=== PATIENT | female | born 1975 | race Caucasian/White ===

== ENCOUNTER 2018-01-02 18:09 | Emergency (ER) | payer SELFPAY ==
[~2018-01-02] VITALS: Ht 160 cm; Wt 97.5 kg
[~2018-01-02 18:09] MED LIST: AZIT-21 PO; DIAZ-345 PO; ESTR1TAB66; HYDR1TAB86 PO; HYDR480S10 GT; TOPI15CA6; TRZ100T PO
--- OUTSIDE RECORDS SUMMARY | 2018-01-02 18:16 | XMS REPORT | Continuity of Care Document ---
Author Author [facility] Organization [facility] Address Unknown Phone Unavailable Allergies Active Description Code Type Severity Reaction Onset Reported/Identified Relationship to Patient Clinical Status Yes NKANo Known Allergies NKA Miscellaneous Allergy Unknown N/A 07/12/2006 Yes No Known Drug Allergies [id number] Drug Allergy Mild N/A 03/19/2009 Yes Trazodone 150mg tab 150MG tablet Drug Allergy N/A N/A 08/15/2014 Yes Abilify 2 mg tablet Drug Allergy N/A N/A 11/03/2014 Medications There is no data. Problems Date Dx Coded Attending Type Code Diagnosis Diagnosed By 05/16/2008 780.39 SEIZURES OTHER 05/16/2008 780.39 SEIZURES OTHER 05/16/2008 LINDSEY MCBRIDE DO 780.39 SEIZURES OTHER 05/16/2008 BHAVANI MAXWELL MD 780.39 SEIZURES OTHER 05/16/2008 NAHID SUGGS DDS 780.39 SEIZURES OTHER 05/16/2008 780.39 SEIZURES OTHER 05/16/2008 FLOYD YIP MD 780.39 SEIZURES OTHER 05/16/2008 LINDSEY MCBRIDE DO 780.39 SEIZURES OTHER 05/16/2008 BHAVANI MAXWELL MD 780.39 SEIZURES OTHER 05/16/2008 BHAVANI MAXWELL MD 780.39 SEIZURES OTHER 05/16/2008 SHARON WOLF, JOJO Tatum 780.39 SEIZURES OTHER 05/16/2008 JOJO HERRERA PHD 780.39 SEIZURES OTHER 05/16/2008 GÉNESIS SOFTWARE INTEGRATION DEVELOPER, ZIGGY 780.39 SEIZURES OTHER 05/16/2008 GÉNESIS SOFTWARE INTEGRATION DEVELOPER, ZIGGY 780.39 SEIZURES OTHER 05/16/2008 SHARON WOLF, JOJO Tatum 780.39 SEIZURES OTHER 05/16/2008 GÉNESIS SOFTWARE INTEGRATION DEVELOPER, ZIGGY 780.39 SEIZURES OTHER 05/16/2008 GÉNESIS SOFTWARE INTEGRATION DEVELOPER, ZIGGY 780.39 SEIZURES OTHER 07/25/2008 780.79 Malaise And Fatigue 07/25/2008 780.79 Malaise And Fatigue 07/25/2008 LINDSEY MCBRIDE DO K 780.79 Malaise And Fatigue 07/25/2008 BHAVANI MAXWELL MD 780.79 Malaise And Fatigue 07/25/2008 MUOGHALTaina GUTIERREZS, NAHID N 780.79 Malaise And Fatigue 07/25/2008 780.79 Malaise And Fatigue 07/25/2008 FLOYD YIP MD 780.79 Malaise And Fatigue 07/25/2008 LINDSEY MCBRIDE DO 780.79 Malaise And Fatigue 07/25/2008 BHAVANI MAXWELL MD 780.79 Malaise And Fatigue 07/25/2008 BHAVANI MAXWELL MD 780.79 Malaise And Fatigue 07/25/2008 SHARON PHD, JOJO Tatum 780.79 Malaise And Fatigue 07/25/2008 SHARON PHD, JOJO Tatum 780.79 Malaise And Fatigue 07/25/2008 GÉNESIS SOFTWARE INTEGRATION DEVELOPER, ZIGGY 780.79 Malaise And Fatigue 07/25/2008 GÉNESIS SOFTWARE INTEGRATION DEVELOPER, ZIGGY 780.79 Malaise And Fatigue 07/25/2008 SHARON PHD, JOJO Tatum 780.79 Malaise And Fatigue 07/25/2008 GÉNESIS SOFTWARE INTEGRATION DEVELOPER, ZIGGY 780.79 Malaise And Fatigue 07/25/2008 GÉNESIS SOFTWARE INTEGRATION DEVELOPER, ZIGGY 780.79 Malaise And Fatigue 09/21/2008 780.52 Insomnia Unspecified 09/21/2008 786.50 Chest Pain 09/21/2008 780.52 Insomnia Unspecified 09/21/2008 786.50 Chest Pain 09/21/2008 LINDSEY MCBRIDE DO K 780.52 Insomnia Unspecified 09/21/2008 LINDSEY MCBRIDE DO K 786.50 Chest Pain 09/21/2008 BHAVANI MAXWELL MD 780.52 Insomnia Unspecified 09/21/2008 BHAVANI MAXWELL MD 786.50 Chest Pain 09/21/2008 MUOGWILIAN GUTIERREZS, NAHID N 780.52 Insomnia Unspecified 09/21/2008 ES DANIEL, NAHID N 786.50 Chest Pain 09/21/2008 780.52 Insomnia Unspecified 09/21/2008 786.50 Chest Pain 09/21/2008 FLOYD YIP MD 780.52 Insomnia Unspecified 09/21/2008 FLOYD YIP MD 786.50 Chest Pain 09/21/2008 LINDSEY MCBRIDE DO 780.52 Insomnia Unspecified 09/21/2008 LINDSEY MCBRIDE DO 786.50 Chest Pain 09/21/2008 BHAVANI MAXWELL MD 780.52 Insomnia Unspecified 09/21/2008 BHAVANI MAXWELL MD 786.50 Chest Pain 09/21/2008 BHAVANI MAXWELL MD 780.52 Insomnia Unspecified 09/21/2008 BHAVANI MAXWELL MD 786.50 Chest Pain 09/21/2008 SHARON WOLF, JOJO Tatum 780.52 Insomnia Unspecified 09/21/2008 SHARON WOLF, JOJO Tatum 786.50 Chest Pain 09/21/2008 SHARON WOLF, JOJO Tatum 780.52 Insomnia Unspecified 09/21/2008 SHARON WOLF, JOJO Tatum 786.50 Chest Pain 09/21/2008 GÉNESIS SOFTWARE INTEGRATION DEVELOPER, ZIGGY 780.52 Insomnia Unspecified 09/21/2008 GÉNESIS SOFTWARE INTEGRATION DEVELOPER, ZIGGY 786.50 Chest Pain 09/21/2008 GÉNESIS SOFTWARE INTEGRATION DEVELOPER, ZIGGY 780.52 Insomnia Unspecified 09/21/2008 GÉNESIS SOFTWARE INTEGRATION DEVELOPER, ZIGGY 786.50 Chest Pain 09/21/2008 SHARON WOLF, JOJO Tatum 780.52 Insomnia Unspecified 09/21/2008 SHARON WOLF, JOJO Tatum 786.50 Chest Pain 09/21/2008 GÉNESIS SOFTWARE INTEGRATION DEVELOPER, ZIGGY 780.52 Insomnia Unspecified 09/21/2008 GÉNESIS SOFTWARE INTEGRATION DEVELOPER, ZIGGY 786.50 Chest Pain 09/21/2008 GÉNESIS SOFTWARE INTEGRATION DEVELOPER, ZIGGY 780.52 Insomnia Unspecified 09/21/2008 GÉNESIS SOFTWARE INTEGRATION DEVELOPER, ZIGGY 786.50 Chest Pain 12/22/2008 333.99 Neuroleptic- induced Acute Akathisia 12/22/2008 333.99 Neuroleptic- induced Acute Akathisia 12/22/2008 LINDSEY MCBRIDE DO 333.99 Neuroleptic-induced Acute Akathisia 12/22/2008 BHAVANI MAXWELL MD 333.99 Neuroleptic-induced Acute Akathisia 12/22/2008 NAHID SUGGS DDS 333.99 Neuroleptic-induced Acute Akathisia 12/22/2008 333.99 Neuroleptic- induced Acute Akathisia 12/22/2008 FLOYD YIP MD 333.99 Neuroleptic-induced Acute Akathisia 12/22/2008 LINDSEY MCBRIDE DO 333.99 Neuroleptic-induced Acute Akathisia 12/22/2008 BHAVANI MAXWELL MD 333.99 Neuroleptic-induced Acute Akathisia 12/22/2008 BHAVANI MAXWELL MD 333.99 Neuroleptic-induced Acute Akathisia 12/22/2008 SHARON PHD, JOJO Tatum 333.99 Neuroleptic-induced Acute Akathisia 12/22/2008 SHARON PHD, JOJO Tatum 333.99 Neuroleptic-induced Acute Akathisia 12/22/2008 GÉNESIS SOFTWARE INTEGRATION DEVELOPER, ZIGGY 333.99 Neuroleptic-induced Acute Akathisia 12/22/2008 GÉNESIS SOFTWARE INTEGRATION DEVELOPER, ZIGGY 333.99 Neuroleptic-induced Acute Akathisia 12/22/2008 SHARON PHD, JOJO Tatum 333.99 Neuroleptic-induced Acute Akathisia 12/22/2008 GÉNESIS SOFTWARE INTEGRATION DEVELOPER, ZIGGY 333.99 Neuroleptic-induced Acute Akathisia 12/22/2008 GÉNESIS SOFTWARE INTEGRATION DEVELOPER, ZIGGY 333.99 Neuroleptic-induced Acute Akathisia 01/01/2009 296.90 Unspecified Episodic Mood Disorder 01/01/2009 300.00 AN ANXIETY UNSPEC 01/01/2009 307.47 Si Dyssomnia Nos 01/01/2009 345.90 Epilepsy Unspecified Without Intractable Epilepsy 01/01/2009 296.90 Unspecified Episodic Mood Disorder 01/01/2009 300.00 AN ANXIETY UNSPEC 01/01/2009 307.47 Si Dyssomnia Nos 01/01/2009 345.90 Epilepsy Unspecified Without Intractable Epilepsy 01/01/2009 RAE BUTTERFIELD LINDSEY K 296.90 Unspecified Episodic Mood Disorder 01/01/2009 JAMARCUS MCBRIDE DOA K 300.00 AN ANXIETY UNSPEC 01/01/2009 JAMARCUS MCBRIDE DOA K 307.47 Si Dyssomnia Nos 01/01/2009 JAMARCUS MCBRIDE DOA K 345.90 Epilepsy Unspecified Without Intractable Epilepsy 01/01/2009 BHAVANI MAXWELL MD 296.90 Unspecified Episodic Mood Disorder 01/01/2009 BHAVANI AMXWELL MD 300.00 AN ANXIETY UNSPEC 01/01/2009 BHAVANI MAXWELL MD 307.47 Si Dyssomnia Nos 01/01/2009 BHAVANI MAXWELL MD 345.90 Epilepsy Unspecified Without Intractable Epilepsy 01/01/2009 ES DANIEL, NAHID Dodd 296.90 Unspecified Episodic Mood Disorder 01/01/2009 MUOGHALU DDS, NAHID N 300.00 AN ANXIETY UNSPEC 01/01/2009 MUOGHALU DDS, NAHID N 307.47 Si Dyssomnia Nos 01/01/2009 OSCAROGHALU DDS, NAHID N 345.90 Epilepsy Unspecified Without Intractable Epilepsy 01/01/2009 296.90 Unspecified Episodic Mood Disorder 01/01/2009 300.00 AN ANXIETY UNSPEC 01/01/2009 307.47 Si Dyssomnia Nos 01/01/2009 345.90 Epilepsy Unspecified Without Intractable Epilepsy 01/01/2009 FLOYD YIP MD 296.90 Unspecified Episodic Mood Disorder 01/01/2009 FLOYD YIP MD 300.00 AN ANXIETY UNSPEC 01/01/2009 FLOYD YIP MD 307.47 Si Dyssomnia Nos 01/01/2009 FLOYD YIP MD 345.90 Epilepsy Unspecified Without Intractable Epilepsy 01/01/2009 MCBRIDE DO, LINDSEY K 296.90 Unspecified Episodic Mood Disorder 01/01/2009 MCBRIDE DO, LINDSEY K 300.00 AN ANXIETY UNSPEC 01/01/2009 MCBRIDE DO, LINDSEY K 307.47 Si Dyssomnia Nos 01/01/2009 MCBRIDE DO, LINDSEY K 345.90 Epilepsy Unspecified Without Intractable Epilepsy 01/01/2009 BHAVANI MAXWELL MD 296.90 Unspecified Episodic Mood Disorder 01/01/2009 BHAVANI MAXWELL MD 300.00 AN ANXIETY UNSPEC 01/01/2009 BHAVANI MAXWELL MD 307.47 Si Dyssomnia Nos 01/01/2009 BHAVANI MAXWELL MD 345.90 Epilepsy Unspecified Without Intractable Epilepsy 01/01/2009 BHAVANI MAXWELL MD 296.90 Unspecified Episodic Mood Disorder 01/01/2009 BHAVANI MAXWELL MD 300.00 AN ANXIETY UNSPEC 01/01/2009 BHAVANI MAXWELL MD 307.47 Si Dyssomnia Nos 01/01/2009 BHAVANI MAXWELL MD 345.90 Epilepsy Unspecified Without Intractable Epilepsy 01/01/2009 SHARON WOLF, JOJO Tatum 296.90 Unspecified Episodic Mood Disorder 01/01/2009 SHARON WOLF, JOJO Tatum 300.00 AN ANXIETY UNSPEC 01/01/2009 SHARON WOLF, JOJO Tatum 307.47 Si Dyssomnia Nos 01/01/2009 SHARON WOLF, JOJO Tatum 345.90 Epilepsy Unspecified Without Intractable Epilepsy 01/01/2009 JOJO HERRERA PHD 296.90 Unspecified Episodic Mood Disorder 01/01/2009 JOJO HERRERA PHD 300.00 AN ANXIETY UNSPEC 01/01/2009 JOJO HERRERA PHD 307.47 Si Dyssomnia Nos 01/01/2009 JOJO HERRERA PHD 345.90 Epilepsy Unspecified Without Intractable Epilepsy 01/01/2009 GÉNESIS SOFTWARE INTEGRATION DEVELOPER, ZIGGY 296.90 Unspecified Episodic Mood Disorder 01/01/2009 GÉNESIS SOFTWARE INTEGRATION DEVELOPER, ZIGGY 300.00 AN ANXIETY UNSPEC 01/01/2009 GÉNESIS SOFTWARE INTEGRATION DEVELOPER, ZIGGY 307.47 Si Dyssomnia Nos 01/01/2009 GÉNESIS SOFTWARE INTEGRATION DEVELOPER, ZIGGY 345.90 Epilepsy Unspecified Without Intractable Epilepsy 01/01/2009 GÉNESIS SOFTWARE INTEGRATION DEVELOPER, ZIGGY 296.90 Unspecified Episodic Mood Disorder 01/01/2009 GÉNESIS SOFTWARE INTEGRATION DEVELOPER, ZIGGY 300.00 AN ANXIETY UNSPEC 01/01/2009 GÉNESIS SOFTWARE INTEGRATION DEVELOPER, ZIGGY 307.47 Si Dyssomnia Nos 01/01/2009 GÉNESIS SOFTWARE INTEGRATION DEVELOPER, ZIGGY 345.90 Epilepsy Unspecified Without Intractable Epilepsy 01/01/2009 JOJO HERRERA PHD 296.90 Unspecified Episodic Mood Disorder 01/01/2009 JOJO HERRERA PHD 300.00 AN ANXIETY UNSPEC 01/01/2009 JOJO HERRERA PHD 307.47 Si Dyssomnia Nos 01/01/2009 JOJO HERRERA PHD 345.90 Epilepsy Unspecified Without Intractable Epilepsy 01/01/2009 GÉNESIS SOFTWARE INTEGRATION DEVELOPER, ZIGGY 296.90 Unspecified Episodic Mood Disorder 01/01/2009 GÉNESIS SOFTWARE INTEGRATION DEVELOPER, ZIGGY 300.00 AN ANXIETY UNSPEC 01/01/2009 GÉNESIS SOFTWARE INTEGRATION DEVELOPER, ZIGGY 307.47 Si Dyssomnia Nos 01/01/2009 GÉNESIS SOFTWARE INTEGRATION DEVELOPER, ZIGGY 345.90 Epilepsy Unspecified Without Intractable Epilepsy 01/01/2009 GÉNESIS SOFTWARE INTEGRATION DEVELOPER, ZIGGY 296.90 Unspecified Episodic Mood Disorder 01/01/2009 GÉNESIS SOFTWARE INTEGRATION DEVELOPER, ZIGGY 300.00 AN ANXIETY UNSPEC 01/01/2009 GÉNESIS SOFTWARE INTEGRATION DEVELOPER, ZIGGY 307.47 Si Dyssomnia Nos 01/01/2009 GÉNESIS SOFTWARE INTEGRATION DEVELOPER, ZIGGY 345.90 Epilepsy Unspecified Without Intractable Epilepsy 01/31/2009 465.9 Acute Upper Respiratory Infections Of Unspecified Site 01/31/2009 595.0 Acute Cystitis 01/31/2009 465.9 Acute Upper Respiratory Infections Of Unspecified Site 01/31/2009 595.0 Acute Cystitis 01/31/2009 LINDSEY MCBRIDE DO K 465.9 Acute Upper Respiratory Infections Of Unspecified Site 01/31/2009 RAE BUTTERFIELD LINDSEY K 595.0 Acute Cystitis 01/31/2009 BHAVANI MAXWELL MD 465.9 Acute Upper Respiratory Infections Of Unspecified Site 01/31/2009 BHAVANI MAXWELL MD 595.0 Acute Cystitis 01/31/2009 MUOGHALU DDS, NAHID N 465.9 Acute Upper Respiratory Infections Of Unspecified Site 01/31/2009 MUOGHALU DDS, NAHID N 595.0 Acute Cystitis 01/31/2009 465.9 Acute Upper Respiratory Infections Of Unspecified Site 01/31/2009 595.0 Acute Cystitis 01/31/2009 FLOYD YIP MD 465.9 Acute Upper Respiratory Infections Of Unspecified Site 01/31/2009 FLOYD YIP MD 595.0 Acute Cystitis 01/31/2009 LINDSEY MCBRIDE DO K 465.9 Acute Upper Respiratory Infections Of Unspecified Site 01/31/2009 JAMARCUS MCBRIDE DOA K 595.0 Acute Cystitis 01/31/2009 BHAVANI MAXWELL MD 465.9 Acute Upper Respiratory Infections Of Unspecified Site 01/31/2009 BHAVANI MAXWELL MD 595.0 Acute Cystitis 01/31/2009 BHAVANI MAXWELL MD 465.9 Acute Upper Respiratory Infections Of Unspecified Site 01/31/2009 BHAVANI MAXWELL MD 595.0 Acute Cystitis 01/31/2009 JOJO HERRERA PHD 465.9 Acute Upper Respiratory Infections Of Unspecified Site 01/31/2009 JOJO HERRERA PHD 595.0 Acute Cystitis 01/31/2009 JOJO HERRERA PHD 465.9 Acute Upper Respiratory Infections Of Unspecified Site 01/31/2009 JOJO HERRERA PHD 595.0 Acute Cystitis 01/31/2009 GÉNESIS SOFTWARE INTEGRATION DEVELOPER, ZIGGY 465.9 Acute Upper Respiratory Infections Of Unspecified Site 01/31/2009 GÉNESIS SOFTWARE INTEGRATION DEVELOPER, ZIGGY 595.0 Acute Cystitis 01/31/2009 GÉNESIS SOFTWARE INTEGRATION DEVELOPER, ZIGGY 465.9 Acute Upper Respiratory Infections Of Unspecified Site 01/31/2009 GÉNESIS SOFTWARE INTEGRATION DEVELOPER, ZIGGY 595.0 Acute Cystitis 01/31/2009 JOJO HERRERA PHD 465.9 Acute Upper Respiratory Infections Of Unspecified Site 01/31/2009 JOJO HERRERA PHD 595.0 Acute Cystitis 01/31/2009 GÉNESIS SOFTWARE INTEGRATION DEVELOPER, ZIGGY 465.9 Acute Upper Respiratory Infections Of Unspecified Site 01/31/2009 GÉNESIS SOFTWARE INTEGRATION DEVELOPER, ZIGGY 595.0 Acute Cystitis 01/31/2009 GÉNESIS SOFTWARE INTEGRATION DEVELOPER, ZIGGY 465.9 Acute Upper Respiratory Infections Of Unspecified Site 01/31/2009 GÉNESIS SOFTWARE INTEGRATION DEVELOPER, ZIGGY 595.0 Acute Cystitis 02/20/2009 729.5 Pain In Limb 02/20/2009 729.5 Pain In Limb 02/20/2009 LINDSEY MCBRIDE DO K 729.5 Pain In Limb 02/20/2009 BHAVANI MAXWELL MD 729.5 Pain In Limb 02/20/2009 ES GUTIERREZS, NAHID Dodd 729.5 Pain In Limb 02/20/2009 729.5 Pain In Limb 02/20/2009 PHI HYLTON, FLOYD Carter 729.5 Pain In Limb 02/20/2009 LINDSEY MCBRIDE DO 729.5 Pain In Limb 02/20/2009 BHAVANI MAXWELL MD 729.5 Pain In Limb 02/20/2009 BHAVANI MAXWELL MD 729.5 Pain In Limb 02/20/2009 JOJO HERRERA PHD 729.5 Pain In Limb 02/20/2009 JOJO HERRERA PHD 729.5 Pain In Limb 02/20/2009 GÉNESIS SOFTWARE INTEGRATION DEVELOPER, ZIGGY 729.5 Pain In Limb 02/20/2009 GÉNESIS SOFTWARE INTEGRATION DEVELOPER, ZIGGY 729.5 Pain In Limb 02/20/2009 JOJO HERRERA PHD 729.5 Pain In Limb 02/20/2009 GÉNESIS SOFTWARE INTEGRATION DEVELOPER, ZIGGY 729.5 Pain In Limb 02/20/2009 GÉNESIS SOFTWARE INTEGRATION DEVELOPER, ZIGGY 729.5 Pain In Limb 02/11/2011 698.9 Pruritus Nos 02/11/2011 782.1 Rash 02/11/2011 698.9 Pruritus Nos 02/11/2011 782.1 Rash 02/11/2011 MCBRIDE JAMARCUS BUTTERFIELDA K 698.9 Pruritus Nos 02/11/2011 JAMARCUS MCBRIDE DOA K 782.1 Rash 02/11/2011 BHAVANI MAXWELL MD 698.9 Pruritus Nos 02/11/2011 BHAVANI MAXWELL MD 782.1 Rash 02/11/2011 MUOGHALU DDS, NAHID N 698.9 Pruritus Nos 02/11/2011 MUOGHALU DDS, NAHID N 782.1 Rash 02/11/2011 698.9 Pruritus Nos 02/11/2011 782.1 Rash 02/11/2011 FLOYD YIP MD 698.9 Pruritus Nos 02/11/2011 FLOYD YIP MD 782.1 Rash 02/11/2011 MCBRIDE DO, LINDSEY K 698.9 Pruritus Nos 02/11/2011 MCBRIDE DO, LINDSEY K 782.1 Rash 02/11/2011 BHAVANI MAXWELL MD 698.9 Pruritus Nos 02/11/2011 BHAVANI MAXWELL MD 782.1 Rash 02/11/2011 BHAVANI MAXWELL MD 698.9 Pruritus Nos 02/11/2011 BHAVANI MAXWELL MD 782.1 Rash 02/11/2011 JOJO HERRERA PHD 698.9 Pruritus Nos 02/11/2011 SHARON WOLF, JOJO Tatum 782.1 Rash 02/11/2011 SHARON WOLF, JOJO Tatum 698.9 Pruritus Nos 02/11/2011 SHARON WOLF, JOJO Tatum 782.1 Rash 02/11/2011 GÉNESIS SOFTWARE INTEGRATION DEVELOPER, ZIGGY 698.9 Pruritus Nos 02/11/2011 GÉNESIS SOFTWARE INTEGRATION DEVELOPER, ZIGGY 782.1 Rash 02/11/2011 GÉNESIS SOFTWARE INTEGRATION DEVELOPER, ZIGGY 698.9 Pruritus Nos 02/11/2011 GÉNESIS SOFTWARE INTEGRATION DEVELOPER, ZIGGY 782.1 Rash 02/11/2011 SHARON WOLF, JOJO Tatum 698.9 Pruritus Nos 02/11/2011 SHARON WOLF, JOJO Tatum 782.1 Rash 02/11/2011 GÉNESIS SOFTWARE INTEGRATION DEVELOPER, ZIGGY 698.9 Pruritus Nos 02/11/2011 GÉNESIS SOFTWARE INTEGRATION DEVELOPER, ZIGGY 782.1 Rash 02/11/2011 GÉNESIS SOFTWARE INTEGRATION DEVELOPER, ZIGGY 698.9 Pruritus Nos 02/11/2011 GÉNESIS SOFTWARE INTEGRATION DEVELOPER, ZIGGY 782.1 Rash 04/22/2011 783.0 Anorexia 04/22/2011 783.1 Weight Gain Abnormal 04/22/2011 783.5 Polydipsia 04/22/2011 787.02 Nausea Alone 04/22/2011 789.00 Abdominal Pain Unspecified Site 04/22/2011 783.0 Anorexia 04/22/2011 783.1 Weight Gain Abnormal 04/22/2011 783.5 Polydipsia 04/22/2011 787.02 Nausea Alone 04/22/2011 789.00 Abdominal Pain Unspecified Site 04/22/2011 MCBRIDE DO, LINDSEY K 783.0 Anorexia 04/22/2011 MCBRIDE DO, LINDSEY K 783.1 Weight Gain Abnormal 04/22/2011 MCBRIDE DO, LINDSEY K 783.5 Polydipsia 04/22/2011 MCBRIDE DO, LINDSEY K 787.02 Nausea Alone 04/22/2011 MCBRIDE DO, LINDSEY K 789.00 Abdominal Pain Unspecified Site 04/22/2011 BHAVANI MAXWELL MD 783.0 Anorexia 04/22/2011 BHAVANI MAXWELL MD 783.1 Weight Gain Abnormal 04/22/2011 BHAVANI MAXWELL MD 783.5 Polydipsia 04/22/2011 BHAVANI MAXWELL MD 787.02 Nausea Alone 04/22/2011 BHAVANI MAXWELL MD 789.00 Abdominal Pain Unspecified Site 04/22/2011 MUOGHALU DDS, NAHID N 783.0 Anorexia 04/22/2011 MUOGHALU DDS, NAHID N 783.1 Weight Gain Abnormal 04/22/2011 MUOGHALU DDS, NAHID N 783.5 Polydipsia 04/22/2011 MUOGHALU DDS, NAHID N 787.02 Nausea Alone 04/22/2011 MUOGHALU DDS, NAHID N 789.00 Abdominal Pain Unspecified Site 04/22/2011 783.0 Anorexia 04/22/2011 783.1 Weight Gain Abnormal 04/22/2011 783.5 Polydipsia 04/22/2011 787.02 Nausea Alone 04/22/2011 789.00 Abdominal Pain Unspecified Site 04/22/2011 FLOYD YIP MD 783.0 Anorexia 04/22/2011 FLOYD YIP MD 783.1 Weight Gain Abnormal 04/22/2011 FLOYD YIP MD 783.5 Polydipsia 04/22/2011 FLOYD YIP MD 787.02 Nausea Alone 04/22/2011 PHI HYLTON, FLOYD Carter 789.00 Abdominal Pain Unspecified Site 04/22/2011 RAE BUTTERFIELD, LINDSEY K 783.0 Anorexia 04/22/2011 MCBRIDE , LINDSEY K 783.1 Weight Gain Abnormal 04/22/2011 MCBRIDE , LINDSEY K 783.5 Polydipsia 04/22/2011 MCBRIDE , LINDSEY K 787.02 Nausea Alone 04/22/2011 MCBRIDE , LIDNSEY K 789.00 Abdominal Pain Unspecified Site 04/22/2011 BHAVANI MAXWELL MD 783.0 Anorexia 04/22/2011 BHAVANI MAXWELL MD 783.1 Weight Gain Abnormal 04/22/2011 BHAVANI MAXWELL MD3.5 Polydipsia 04/22/2011 BHAVANI MAXWELL MD 787.02 Nausea Alone 04/22/2011 BHAVANI MAXWELL MD 789.00 Abdominal Pain Unspecified Site 04/22/2011 BHAVANI MAXWELL MD 783.0 Anorexia 04/22/2011 BHAVANI MAXWELL MD 783.1 Weight Gain Abnormal 04/22/2011 BHAVANI MAXWELL MD3.5 Polydipsia 04/22/2011 BHAVANI MAXWELL MD 787.02 Nausea Alone 04/22/2011 BHAVANI MAXWELL MD 789.00 Abdominal Pain Unspecified Site 04/22/2011 JOJO HERRERA PHD 783.0 Anorexia 04/22/2011 JOJO HERRERA PHD 783.1 Weight Gain Abnormal 04/22/2011 JOJO HERRERA PHD 783.5 Polydipsia 04/22/2011 JOJO HERRERA PHD 787.02 Nausea Alone 04/22/2011 JOJO HERRERA PHD 789.00 Abdominal Pain Unspecified Site 04/22/2011 SHARON WOLF, JOJO Tatum 783.0 Anorexia 04/22/2011 JOJO HERRERA PHD 783.1 Weight Gain Abnormal 04/22/2011 JOJO HERRERA PHD 783.5 Polydipsia 04/22/2011 SHARON WOLF, JOJO Tatum 787.02 Nausea Alone 04/22/2011 SHARON WOLF, JOJO Tatum 789.00 Abdominal Pain Unspecified Site 04/22/2011 ZIGGY CAPPS APRN 783.0 Anorexia 04/22/2011 GÉNESIS SOFTWARE INTEGRATION DEVELOPER, ZIGGY 783.1 Weight Gain Abnormal 04/22/2011 GÉNESIS SOFTWARE INTEGRATION DEVELOPER, ZIGGY 783.5 Polydipsia 04/22/2011 GÉNESIS SOFTWARE INTEGRATION DEVELOPER, ZIGGY 787.02 Nausea Alone 04/22/2011 GÉNESIS SOFTWARE INTEGRATION DEVELOPER, ZIGGY 789.00 Abdominal Pain Unspecified Site 04/22/2011 GÉNESIS SOFTWARE INTEGRATION DEVELOPER, ZIGGY 783.0 Anorexia 04/22/2011 GÉNESIS SOFTWARE INTEGRATION DEVELOPER, ZIGGY 783.1 Weight Gain Abnormal 04/22/2011 GÉNESIS SOFTWARE INTEGRATION DEVELOPER, ZIGGY 783.5 Polydipsia 04/22/2011 GÉNESIS SOFTWARE INTEGRATION DEVELOPER, ZIGGY 787.02 Nausea Alone 04/22/2011 GÉNESIS SOFTWARE INTEGRATION DEVELOPER, ZIGGY 789.00 Abdominal Pain Unspecified Site 04/22/2011 SHARON WOLF, JOJO Tatum 783.0 Anorexia 04/22/2011 SHARON WOLF, JOJO Tatum 783.1 Weight Gain Abnormal 04/22/2011 SHARON WOLF, JOJO Tatum 783.5 Polydipsia 04/22/2011 SHARON WOLF, JOJO Tatum 787.02 Nausea Alone 04/22/2011 SHARON WOLF, JOJO Tatum 789.00 Abdominal Pain Unspecified Site 04/22/2011 GÉNESIS SOFTWARE INTEGRATION DEVELOPER, ZIGGY 783.0 Anorexia 04/22/2011 GÉNESIS SOFTWARE INTEGRATION DEVELOPER, ZIGGY 783.1 Weight Gain Abnormal 04/22/2011 GÉNESIS SOFTWARE INTEGRATION DEVELOPER, ZIGGY 783.5 Polydipsia 04/22/2011 GÉNESIS SOFTWARE INTEGRATION DEVELOPER, ZIGGY 787.02 Nausea Alone 04/22/2011 GÉNESIS SOFTWARE INTEGRATION DEVELOPER, ZIGGY 789.00 Abdominal Pain Unspecified Site 04/22/2011 GÉNESIS SOFTWARE INTEGRATION DEVELOPER, ZIGGY 783.0 Anorexia 04/22/2011 GÉNESIS SOFTWARE INTEGRATION DEVELOPER, ZIGGY 783.1 Weight Gain Abnormal 04/22/2011 GÉNESIS SOFTWARE INTEGRATION DEVELOPER, ZIGGY 783.5 Polydipsia 04/22/2011 GÉNESIS SOFTWARE INTEGRATION DEVELOPER, ZIGGY 787.02 Nausea Alone 04/22/2011 GÉNESIS SOFTWARE INTEGRATION DEVELOPER, ZIGGY 789.00 Abdominal Pain Unspecified Site 07/03/2011 724.2 BACK PAIN, LOWER 07/03/2011 724.2 BACK PAIN, LOWER 07/03/2011 LINDSEY MCBRIDE DO 724.2 BACK PAIN, LOWER 07/03/2011 HANS HYLTON, BHAVANI 724.2 BACK PAIN, LOWER 07/03/2011 MUOGHALU DDS, NAHID N 724.2 BACK PAIN, LOWER 07/03/2011 724.2 BACK PAIN, LOWER 07/03/2011 FLOYD YIP MD 724.2 BACK PAIN, LOWER 07/03/2011 LINDSEY MCBRIDE DO K 724.2 BACK PAIN, LOWER 07/03/2011 BHAVANI MAXWELL MD 724.2 BACK PAIN, LOWER 07/03/2011 BHAVANI MAXWELL MD 724.2 BACK PAIN, LOWER 07/03/2011 SHARON PHD, JOJO Tatum 724.2 BACK PAIN, LOWER 07/03/2011 SHARON PHD, JOJO Tatum 724.2 BACK PAIN, LOWER 07/03/2011 GÉNESIS SOFTWARE INTEGRATION DEVELOPER, ZIGGY 724.2 BACK PAIN, LOWER 07/03/2011 GÉNESIS SOFTWARE INTEGRATION DEVELOPER, ZIGGY 724.2 BACK PAIN, LOWER 07/03/2011 SHARON PHD, JOJO Tatum 724.2 BACK PAIN, LOWER 07/03/2011 GÉNESIS SOFTWARE INTEGRATION DEVELOPER, ZIGGY 724.2 BACK PAIN, LOWER 07/03/2011 GÉNESIS SOFTWARE INTEGRATION DEVELOPER, ZIGGY 724.2 BACK PAIN, LOWER 10/14/2011 682.9 Cellulitis And Abscess Of Unspecified Sites 10/14/2011 709.9 Skin Lesions 10/14/2011 682.9 Cellulitis And Abscess Of Unspecified Sites 10/14/2011 709.9 Skin Lesions 10/14/2011 LINDSEY MCBRIDE DO K 682.9 Cellulitis And Abscess Of Unspecified Sites 10/14/2011 LINDSEY MCBRIDE DO K 709.9 Skin Lesions 10/14/2011 BHAVANI MAXWELL MD 682.9 Cellulitis And Abscess Of Unspecified Sites 10/14/2011 BHAVANI MAXWELL MD 709.9 Skin Lesions 10/14/2011 MUOGHALTaina DDS, NAHID N 682.9 Cellulitis And Abscess Of Unspecified Sites 10/14/2011 ES GUTIERREZS, NAHID N 709.9 Skin Lesions 10/14/2011 682.9 Cellulitis And Abscess Of Unspecified Sites 10/14/2011 709.9 Skin Lesions 10/14/2011 FLOYD YIP MD 682.9 Cellulitis And Abscess Of Unspecified Sites 10/14/2011 FLOYD YIP MD 709.9 Skin Lesions 10/14/2011 LINDSEY MCBRIDE DO 682.9 Cellulitis And Abscess Of Unspecified Sites 10/14/2011 LINDSEY MCBRIDE DO 709.9 Skin Lesions 10/14/2011 BHAVANI MAXWELL MD 682.9 Cellulitis And Abscess Of Unspecified Sites 10/14/2011 BHAVANI MAXWELL MD 709.9 Skin Lesions 10/14/2011 BHAVANI MAXWELL MD 682.9 Cellulitis And Abscess Of Unspecified Sites 10/14/2011 BHAVANI MAXWELL MD 709.9 Skin Lesions 10/14/2011 SHARON WOLF, JOJO Tatum 682.9 Cellulitis And Abscess Of Unspecified Sites 10/14/2011 SHARON WOLF, JOJO Tatum 709.9 Skin Lesions 10/14/2011 SHARON WOLF, JOJO Tatum 682.9 Cellulitis And Abscess Of Unspecified Sites 10/14/2011 SHARON WOLF, JOJO Tatum 709.9 Skin Lesions 10/14/2011 GÉNESIS SOFTWARE INTEGRATION DEVELOPER, ZIGGY 682.9 Cellulitis And Abscess Of Unspecified Sites 10/14/2011 GÉNESIS SOFTWARE INTEGRATION DEVELOPER, ZIGGY 709.9 Skin Lesions 10/14/2011 GÉNESIS SOFTWARE INTEGRATION DEVELOPER, ZIGGY 682.9 Cellulitis And Abscess Of Unspecified Sites 10/14/2011 GÉNESIS SOFTWARE INTEGRATION DEVELOPER, ZIGGY 709.9 Skin Lesions 10/14/2011 SHARON WOLF, JOJO Tatum 682.9 Cellulitis And Abscess Of Unspecified Sites 10/14/2011 SHARON WOLF, JOJO Tatum 709.9 Skin Lesions 10/14/2011 GÉNESIS SOFTWARE INTEGRATION DEVELOPER, ZIGGY 682.9 Cellulitis And Abscess Of Unspecified Sites 10/14/2011 GÉNESIS SOFTWARE INTEGRATION DEVELOPER, ZIGGY 709.9 Skin Lesions 10/14/2011 GÉNESIS SOFTWARE INTEGRATION DEVELOPER, ZIGGY 682.9 Cellulitis And Abscess Of Unspecified Sites 10/14/2011 GÉNESIS SOFTWARE INTEGRATION DEVELOPER, ZIGGY 709.9 Skin Lesions 11/11/2011 300.02 An Gen Anxiety 11/11/2011 799.22 Irritibility 11/11/2011 300.02 An Gen Anxiety 11/11/2011 799.22 Irritibility 11/11/2011 LINDSEY MCBRIDE DO 300.02 An Gen Anxiety 11/11/2011 LINDSEY MCBRIDE DO 799.22 Irritibility 11/11/2011 BHAVANI MAXWELL MD 300.02 An Gen Anxiety 11/11/2011 BHAVANI MAXWELL MD 799.22 Irritibility 11/11/2011 MUOGHALU DDS, NAHID N 300.02 An Gen Anxiety 11/11/2011 MUOGHALU DDS, NAHID N 799.22 Irritibility 11/11/2011 300.02 An Gen Anxiety 11/11/2011 799.22 Irritibility 11/11/2011 FLOYD YIP MD 300.02 An Gen Anxiety 11/11/2011 FLOYD YIP MD 799.22 Irritibility 11/11/2011 MCBRIDE DO, LINDSEY K 300.02 An Gen Anxiety 11/11/2011 MCBRIDE DO, LINDSEY K 799.22 Irritibility 11/11/2011 BHAVANI MAXWELL MD 300.02 An Gen Anxiety 11/11/2011 BHAVANI MAXWELL MD 799.22 Irritibility 11/11/2011 BHAVANI MAXWELL MD 300.02 An Gen Anxiety 11/11/2011 BHAVANI MAXWELL MD 799.22 Irritibility 11/11/2011 SHARON WOLF, JOJO Tatum 300.02 An Gen Anxiety 11/11/2011 SHARON WOLF, JOJO Tatum 799.22 Irritibility 11/11/2011 SHARON WOLF, JOJO Tatum 300.02 An Gen Anxiety 11/11/2011 JOJO HERRERA PHD 799.22 Irritibility 11/11/2011 GÉNESIS SOFTWARE INTEGRATION DEVELOPER, ZIGGY 300.02 An Gen Anxiety 11/11/2011 GÉNESIS SOFTWARE INTEGRATION DEVELOPER, ZIGGY 799.22 Irritibility 11/11/2011 GÉNESIS SOFTWARE INTEGRATION DEVELOPER, ZIGGY 300.02 An Gen Anxiety 11/11/2011 GÉNESIS SOFTWARE INTEGRATION DEVELOPER, ZIGGY 799.22 Irritibility 11/11/2011 SHARON PHD, JOJO Tatum 300.02 An Gen Anxiety 11/11/2011 SHARON WOLF, JOJO Tatum 799.22 Irritibility 11/11/2011 GÉNESIS SOFTWARE INTEGRATION DEVELOPER, ZIGGY 300.02 An Gen Anxiety 11/11/2011 GÉNESIS SOFTWARE INTEGRATION DEVELOPER, ZIGGY 799.22 Irritibility 11/11/2011 GÉNESIS SOFTWARE INTEGRATION DEVELOPER, ZIGGY 300.02 An Gen Anxiety 11/11/2011 GÉNESIS SOFTWARE INTEGRATION DEVELOPER, ZIGGY 799.22 Irritibility 01/27/2012 333.94 RESTLESS LEGS SYNDROME (RLS) 01/27/2012 333.94 RESTLESS LEGS SYNDROME (RLS) 01/27/2012 LINDSEY MCBRIDE DO 333.94 RESTLESS LEGS SYNDROME (RLS) 01/27/2012 BHAVANI MAXWELL MD 333.94 RESTLESS LEGS SYNDROME (RLS) 01/27/2012 ES DANIEL, NAHID Dodd 333.94 RESTLESS LEGS SYNDROME (RLS) 01/27/2012 333.94 RESTLESS LEGS SYNDROME (RLS) 01/27/2012 PHI HYLTON, FLOYD Carter 333.94 RESTLESS LEGS SYNDROME (RLS) 01/27/2012 LINDSEY MCBRIDE DO 333.94 RESTLESS LEGS SYNDROME (RLS) 01/27/2012 BHAVANI MAXWELL MD 333.94 RESTLESS LEGS SYNDROME (RLS) 01/27/2012 BHAVANI MAXWELL MD 333.94 RESTLESS LEGS SYNDROME (RLS) 01/27/2012 SHARON WOLF, JOJO Tatum 333.94 RESTLESS LEGS SYNDROME (RLS) 01/27/2012 SHARON WOLF, JOJO Tatum 333.94 RESTLESS LEGS SYNDROME (RLS) 01/27/2012 ZIGGY CAPPS APRN 333.94 RESTLESS LEGS SYNDROME (RLS) 01/27/2012 ZIGGY CAPPS APRN 333.94 RESTLESS LEGS SYNDROME (RLS) 01/27/2012 SHARON WOLF, JOJO Tatum 333.94 RESTLESS LEGS SYNDROME (RLS) 01/27/2012 ZIGGY CAPPS APRN 333.94 RESTLESS LEGS SYNDROME (RLS) 01/27/2012 ZIGGY CAPPS APRN 333.94 RESTLESS LEGS SYNDROME (RLS) 11/05/2012 LINDSEY MCBRIDE DO 464.00 LARYNGITIS ACUTE W/O OBSTRUCTION 11/05/2012 LINDSEY MCBRIDE DO 466.0 BRONCHITIS, ACUTE 11/05/2012 LINDSEY MCBRIDE DO 786.2 COUGH 11/05/2012 BHAVANI MAXWELL MD 464.00 LARYNGITIS ACUTE W/O OBSTRUCTION 11/05/2012 BHAVANI MAXWELL MD 466.0 BRONCHITIS, ACUTE 11/05/2012 BHAVANI MAXWELL MD 786.2 COUGH 11/05/2012 ES DANIEL, NAHID Dodd 464.00 LARYNGITIS ACUTE W/O OBSTRUCTION 11/05/2012 MUOGHALU DDS, NAHID N 466.0 BRONCHITIS, ACUTE 11/05/2012 MUOGHALU DDS, NAHID N 786.2 COUGH 11/05/2012 464.00 LARYNGITIS ACUTE W/O OBSTRUCTION 11/05/2012 466.0 BRONCHITIS, ACUTE 11/05/2012 786.2 COUGH 11/05/2012 PHI HYLTON, FLOYD Carter 464.00 LARYNGITIS ACUTE W/O OBSTRUCTION 11/05/2012 PHI HYLTON, FLOYD Carter 466.0 BRONCHITIS, ACUTE 11/05/2012 PHI HYLTON, FLOYD Carter 786.2 COUGH 11/05/2012 MCBRIDE DO, LINDSEY K 464.00 LARYNGITIS ACUTE W/O OBSTRUCTION 11/05/2012 MCBRIDE DO, LINDSEY K 466.0 BRONCHITIS, ACUTE 11/05/2012 MCBRIDE DO, LINDSEY K 786.2 COUGH 11/05/2012 HANS HYLTON, BHAVANI 464.00 LARYNGITIS ACUTE W/O OBSTRUCTION 11/05/2012 HANS HYLTON, BHAVANI 466.0 BRONCHITIS, ACUTE 11/05/2012 HANS HYLTON, BHAVANI 786.2 COUGH 11/05/2012 HANS HYLTON, BHAVANI 464.00 LARYNGITIS ACUTE W/O OBSTRUCTION 11/05/2012 BHAVANI MAXWELL MD 466.0 BRONCHITIS, ACUTE 11/05/2012 HANS HYLTON, BHAVANI 786.2 COUGH 11/05/2012 SHARON WOLF, JOJO Tatum 464.00 LARYNGITIS ACUTE W/O OBSTRUCTION 11/05/2012 SHARON PHD, JOJO Tatum 466.0 BRONCHITIS, ACUTE 11/05/2012 SHARON PHD, JOJO Tatum 786.2 COUGH 11/05/2012 SHARON PHD, JOJO Tatum 464.00 LARYNGITIS ACUTE W/O OBSTRUCTION 11/05/2012 SHARON PHD, JOJO Tatum 466.0 BRONCHITIS, ACUTE 11/05/2012 SHARON PHD, JOJO Tatum 786.2 COUGH 11/05/2012 GÉNESIS SOFTWARE INTEGRATION DEVELOPER, ZIGGY 464.00 LARYNGITIS ACUTE W/O OBSTRUCTION 11/05/2012 GÉNESIS SOFTWARE INTEGRATION DEVELOPER, ZIGGY 466.0 BRONCHITIS, ACUTE 11/05/2012 GÉNESIS SOFTWARE INTEGRATION DEVELOPER, ZIGGY 786.2 COUGH 11/05/2012 GÉNESIS SOFTWARE INTEGRATION DEVELOPER, ZIGGY 464.00 LARYNGITIS ACUTE W/O OBSTRUCTION 11/05/2012 GÉNESIS SOFTWARE INTEGRATION DEVELOPER, ZIGGY 466.0 BRONCHITIS, ACUTE 11/05/2012 GÉNESIS SOFTWARE INTEGRATION DEVELOPER, ZIGGY 786.2 COUGH 11/05/2012 JOJO HERRERA PHD 464.00 LARYNGITIS ACUTE W/O OBSTRUCTION 11/05/2012 JOJO HERRERA PHD 466.0 BRONCHITIS, ACUTE 11/05/2012 JOJO HERRERA PHD 786.2 COUGH 11/05/2012 GÉNESIS SOFTWARE INTEGRATION DEVELOPER, ZIGGY 464.00 LARYNGITIS ACUTE W/O OBSTRUCTION 11/05/2012 GÉNESIS SOFTWARE INTEGRATION DEVELOPER, ZIGGY 466.0 BRONCHITIS, ACUTE 11/05/2012 GÉNESIS SOFTWARE INTEGRATION DEVELOPER, ZIGGY 786.2 COUGH 11/05/2012 GÉNESIS SOFTWARE INTEGRATION DEVELOPER, ZIGGY 464.00 LARYNGITIS ACUTE W/O OBSTRUCTION 11/05/2012 GÉNESIS SOFTWARE INTEGRATION DEVELOPER, ZIGGY 466.0 BRONCHITIS, ACUTE 11/05/2012 GÉNESIS SOFTWARE INTEGRATION DEVELOPER, ZIGGY 786.2 COUGH 06/15/2013 PHI HYLTON, FLOYD Carter 719.46 PAIN IN JOINT INVOLVING LOWER LEG 06/15/2013 LINDSEY MCBRIDE DO 719.46 PAIN IN JOINT INVOLVING LOWER LEG 06/15/2013 BHAVANI MAXWELL MD 719.46 PAIN IN JOINT INVOLVING LOWER LEG 06/15/2013 BHAVANI MAXWELL MD 719.46 PAIN IN JOINT INVOLVING LOWER LEG 06/15/2013 JOJO HERRERA PHD 719.46 PAIN IN JOINT INVOLVING LOWER LEG 06/15/2013 JOJO HERRERA PHD 719.46 PAIN IN JOINT INVOLVING LOWER LEG 06/15/2013 GÉNESIS SOFTWARE INTEGRATION DEVELOPER, ZIGGY 719.46 PAIN IN JOINT INVOLVING LOWER LEG 06/15/2013 GÉNESIS SOFTWARE INTEGRATION DEVELOPER, ZIGGY 719.46 PAIN IN JOINT INVOLVING LOWER LEG 06/15/2013 JOJO HERRERA PHD 719.46 PAIN IN JOINT INVOLVING LOWER LEG 06/15/2013 GÉNESIS SOFTWARE INTEGRATION DEVELOPER, ZIGGY 719.46 PAIN IN JOINT INVOLVING LOWER LEG 06/15/2013 GÉNESIS SOFTWARE INTEGRATION DEVELOPER, ZIGGY 719.46 PAIN IN JOINT INVOLVING LOWER LEG 08/03/2013 LINDSEY MCBRIDE DO 686.9 UNSPECIFIED LOCAL INFECTION OF SKIN AND SUBCUTANEOUS TISSUE 08/03/2013 BHAVANI MAXWELL MD 686.9 UNSPECIFIED LOCAL INFECTION OF SKIN AND SUBCUTANEOUS TISSUE 08/03/2013 BHAVANI MAXWELL MD 686.9 UNSPECIFIED LOCAL INFECTION OF SKIN AND SUBCUTANEOUS TISSUE 08/03/2013 JOJO HERRERA PHD 68Landon.9 UNSPECIFIED LOCAL INFECTION OF SKIN AND SUBCUTANEOUS TISSUE 08/03/2013 JOJO HERRERA PHD 686.9 UNSPECIFIED LOCAL INFECTION OF SKIN AND SUBCUTANEOUS TISSUE 08/03/2013 GÉNESIS ZIGGY REYNOSO 686.9 UNSPECIFIED LOCAL INFECTION OF SKIN AND SUBCUTANEOUS TISSUE 08/03/2013 GÉNESIS SOFTWARE INTEGRATION DEVELOPER, ZIGGY 686.9 UNSPECIFIED LOCAL INFECTION OF SKIN AND SUBCUTANEOUS TISSUE 08/03/2013 JOJO HERRERA PHD 686.9 UNSPECIFIED LOCAL INFECTION OF SKIN AND SUBCUTANEOUS TISSUE 08/03/2013 GÉNESIS SOFTWARE INTEGRATION DEVELOPER, ZIGGY 686.9 UNSPECIFIED LOCAL INFECTION OF SKIN AND SUBCUTANEOUS TISSUE 08/03/2013 GÉNESIS SOFTWARE INTEGRATION DEVELOPER, ZIGGY 686.9 UNSPECIFIED LOCAL INFECTION OF SKIN AND SUBCUTANEOUS TISSUE 04/25/2014 HANS HYLTON, BHAVANI E905.1 VENOMOUS SPIDERS CAUSING POISONING AND TOXIC REACTIONS 04/25/2014 JOJO HERRERA PHD E905.1 VENOMOUS SPIDERS CAUSING POISONING AND TOXIC REACTIONS 04/25/2014 JOJO HERRERA PHD E905.1 VENOMOUS SPIDERS CAUSING POISONING AND TOXIC REACTIONS 04/25/2014 GÉNESIS SOFTWARE INTEGRATION DEVELOPER, ZIGGY E905.1 VENOMOUS SPIDERS CAUSING POISONING AND TOXIC REACTIONS 04/25/2014 GÉNESIS SOFTWARE INTEGRATION DEVELOPER, ZIGGY E905.1 VENOMOUS SPIDERS CAUSING POISONING AND TOXIC REACTIONS 04/25/2014 JOJO HERRERA PHD E905.1 VENOMOUS SPIDERS CAUSING POISONING AND TOXIC REACTIONS 04/25/2014 GÉNESIS ZIGGY REYNOSO E905.1 VENOMOUS SPIDERS CAUSING POISONING AND TOXIC REACTIONS 04/25/2014 GÉNESIS ZIGGY REYNOSO E905.1 VENOMOUS SPIDERS CAUSING POISONING AND TOXIC REACTIONS 06/16/2014 JOJO HERRERA PHD 296.80 MO BIPOLAR NOS 06/16/2014 JOJO HERRERA PHD 296.80 MO BIPOLAR NOS 06/16/2014 GÉNESIS SOFTWARE INTEGRATION DEVELOPER, ZIGGY 296.80 MO BIPOLAR NOS 06/16/2014 GÉNESIS SOFTWARE INTEGRATION DEVELOPER, ZIGGY 296.80 MO BIPOLAR NOS 06/16/2014 JOJO HERRERA PHD 296.80 MO BIPOLAR NOS 06/16/2014 GÉNESIS SOFTWARE INTEGRATION DEVELOPER, ZIGGY 296.80 MO BIPOLAR NOS 06/16/2014 GÉNESIS SOFTWARE INTEGRATION DEVELOPER, ZIGGY 296.80 MO BIPOLAR NOS 07/25/2014 GÉNESIS SOFTWARE INTEGRATION DEVELOPER, ZIGGY 296.60 MO BIPOLAR I MIXED UNSPECIFIED 07/25/2014 GÉNESIS REYNOSO ZIGGY 296.60 MO BIPOLAR I MIXED UNSPECIFIED 07/25/2014 SHARON WOLF, JOJO Tatum 296.60 MO BIPOLAR I MIXED UNSPECIFIED 07/25/2014 GÉNESIS REYNOSO ZIGGY 296.60 MO BIPOLAR I MIXED UNSPECIFIED 07/25/2014 GÉNESIS REYNOSO ZIGGY 296.60 MO BIPOLAR I MIXED UNSPECIFIED 08/15/2014 GÉNESIS REYNOSO ZIGGY 296.62 MO BIPOLAR I MIXED MODERATE 08/15/2014 SHARON WOLF, JOJO Tatum 296.62 MO BIPOLAR I MIXED MODERATE 08/15/2014 GÉNESIS REYNOSO ZIGGY 296.62 MO BIPOLAR I MIXED MODERATE 08/15/2014 GÉNESIS REYNOSO ZIGGY 296.62 MO BIPOLAR I MIXED MODERATE 11/03/2014 ZIGGY CAPPS APRN 300.02 AN GEN ANXIETY 11/03/2014 ZIGGY CAPPS APRN 300.02 AN GEN ANXIETY Procedures Code [place] [address] ROUTINE VENIPUNCTURE 04/19/2013 34271 CMP 04/19/2013 9375081 GFR CALC (RESULT ONLY) 04/19/2013 90445 MRI EXTREMITY JOINT, LOWER LEFT W & W/O CONTRAST 06/17/2013 ORTHOPEDI SUJATA SHELTON 06/17/2013 J0696 ROCEPHIN INJ 08/03/2013 09578 THERAPUTIC INJ SQ/IM 08/03/2013 91993 URINE DRUG SCREEN (IN-HOUSE ) 10/07/2013 96684 PSYCH DIAGNOSTIC EVALUATION 06/16/2014 22495 PSYTX PT&/FAMILY 30 MINUTES 07/14/2014 28448 PSYTX PT&/FAMILY 30 MINUTES 09/06/2014 Results There is no data. Encounters ACCT No. Visit Date/Time Discharge Status Pt. Type Provider Facility Loc./Unit Complaint [id number] 06/13/2013 15:38:00 06/13/2013 23:59:59 CLS Outpatient [id number] 01/02/2018 18:11:00 ACT Emergency SANDOVAL HYLTON, KAMRAN Tatum [facility] ER POSS SPIDER BITE,FLU SYMPTOMS [id number] 11/03/2014 11:23:00 11/03/2014 23:59:59 CLS Outpatient ZIGGY CAPPS APRN [id number] 11/03/2014 11:23:00 11/03/2014 23:59:59 CLS Outpatient GÉNESIS SOFTWARE INTEGRATION DEVELOPERHAYDEZIGGY [id number] 09/06/2014 14:51:00 09/06/2014 23:59:59 CLS Outpatient JOJO HERRERA PHD [id number] 08/15/2014 10:41:00 08/15/2014 23:59:59 CLS Outpatient GÉNESIS SOFTWARE INTEGRATION DEVELOPERHAYDEZIGGY [id number] 07/25/2014 09:40:00 07/25/2014 23:59:59 CLS Outpatient ZIGGY CAPPS APRN [id number] 07/14/2014 09:50:00 07/14/2014 23:59:59 CLS Outpatient JOJO HERRERA PHD [id number] 06/16/2014 10:41:00 06/16/2014 23:59:59 CLS Outpatient JOJO HERRERA PHD [id number] 04/25/2014 09:34:00 04/25/2014 23:59:59 CLS Outpatient BHAVANI MAXWELL MD [id number] 10/07/2013 14:17:00 10/07/2013 23:59:59 CLS Outpatient BHAVANI MAXWELL MD [id number] 08/03/2013 15:22:00 08/03/2013 23:59:59 CLS Outpatient LINDSEY MCBRIDE DO [id number] 06/15/2013 13:47:00 06/15/2013 23:59:59 CLS Outpatient FLOYD YIP MD [id number] 12/30/2012 14:21:00 12/30/2012 23:59:59 CLS Outpatient NAHID SUGGS DDS [id number] 11/25/2012 15:37:00 11/25/2012 23:59:59 CLS Outpatient BHAVANI MAXWELL MD [id number] 11/05/2012 09:30:00 11/05/2012 23:59:59 [place] [id number] 08/19/2012 15:17:00 08/19/2012 23:59:59 CLS Outpatient [id number] 08/19/2012 15:17:00 08/19/2012 23:59:59 CLS Outpatient [id number] 04/19/2013 14:18:00 Document Registration
[2018-01-02 18:26] VITALS: BP 136/77
== END 2018-01-02 19:09 | disposition left against medical advice (07) ==
LOC: EDUNIT# 18:09 → ER 18:11
DX: J11.1 Influenza due to unidentified influenza virus with other respiratory manifestations (principal)
CPT/HCPCS: 99281

== ENCOUNTER 2019-10-19 08:57 | Emergency (ER) | payer SELFPAY ==
[~2019-10-19] VITALS: Ht 160 cm; Wt 102.0 kg
[2019-10-19] MEDS ORDERED: cefTRIAXone FOR IV USE 1,000 MG in WATER (STERILE) FOR INJECTION 10 ML IV ONE (10:00)
[2019-10-19] MEDS ORDERED: KETOROLAC 30 MG/ML VIAL IVP ONE (10:00)
[2019-10-19 10:28] LABS: BASOPHILS % (AUTO) 1 % (0-10); EOSINOPHILS # (AUTO) 0.1 10^3/uL (0.0-0.3); EOSINOPHILS % (AUTO) 2 % (0-10); HEMATOCRIT 41 % (35-52); HEMOGLOBIN 13.5 G/DL (11.5-16.0); LYMPHOCYTES % (AUTO) 25 % (12-44); MEAN CORPUSCULAR HEMOGLOBIN 28 PG (25-34); MEAN CORPUSCULAR HGB CONC 33 G/DL (32-36); MEAN CORPUSCULAR VOLUME 86 FL (80-99); MEAN PLATELET VOLUME 9.9 FL (7.4-10.4); MONOCYTES # (AUTO) 0.8 X 10^3 (0.0-1.0); MONOCYTES % (AUTO) 10 % (0-12); NEUTROPHILS # (AUTO) 4.9 X 10^3 (1.8-7.8); NEUTROPHILS % (AUTO) 63 % (42-75); PLATELET COUNT 265 10^3/uL (130-400); RED CELL DISTRIBUTION WIDTH 13.7 % (10.0-14.5); WHITE BLOOD COUNT 7.8 10^3/uL (4.3-11.0)
[2019-10-19 10:43] LABS: BUN/CREATININE RATIO 12; CALCIUM 8.7 MG/DL (8.5-10.1); CARBON DIOXIDE 24 MMOL/L (21-32); CHLORIDE 108 MMOL/L (98-107); CREATININE SERUM 0.77 MG/DL (0.60-1.30); GFR ESTIMATED > 60; GLUCOSE 89 MG/DL (70-105); POTASSIUM 3.8 MMOL/L (3.6-5.0); SODIUM 140 MMOL/L (135-145)
--- NOTE | 2019-10-19 11:14 | Diagnostic Imaging Report ---
INDICATION: Left rib pain. TIME OF EXAM: 11:01 AM Correlation is made with prior chest 01/22/2008. There is an area of density in the left lung base near the costophrenic angle. Otherwise the lungs are clear. No effusion is identified. There is no pneumothorax. Bony structures are unremarkable. IMPRESSION: Minimal infiltrate or atelectasis left base. Study is otherwise unremarkable. Dictated by: Dictated on workstation # [id number]
--- NOTE | 2019-10-19 11:15 | Diagnostic Imaging Report ---
INDICATION: Left rib pain. TIME OF EXAMINATION: 11:02 AM. TECHNIQUE: Multiple views of the left ribs were obtained. FINDINGS: No displaced rib fracture is detected. There is a small area of infiltrate or atelectasis in the left base. No pneumothorax is seen. IMPRESSION: No evidence of rib fracture. There is some minimal infiltrate or atelectasis in the left base. Dictated by: Dictated on workstation # [id number]
[2019-10-19] MEDS ORDERED: CEPH-507 PO (11:57)
[2019-10-19] MEDS ORDERED: AZIT250T12 PO (11:57)
--- NOTE | 2019-10-19 11:57 | ED General ---
General Chief Complaint: Lower Extremity Stated Complaint: RT LEG SWELLING AND RIB PAIN Nursing Triage Note: pt reports pain in l small toe x 2 days but worse today with swelling, redness, and heat traveling up foot. pt also reports l sided rib pain after helping lift someone at work on 10/16/19 Nursing Sepsis Screen: No Definite Risk Source of Information: Patient Exam Limitations: No Limitations History of Present Illness Date Seen by Provider: Oct 19, 2019 Time Seen by Provider: 09:50 Initial Comments This 44-year-old woman presents to the emergency room with 2 complaints. First, her left foot is warm, swollen, and erythematous. This started 2 days ago on the fifth toe and has now spread. She believes this to be cellulitis because it is similar to a prior episode of cellulitis. She denies associated fever. Second, she complains of pain along the left lateral chest wall especially with her breathing and palpation. She reports this pain started on October 16 after she felt a popping sensation when lifting someone at work. She denies any other significant respiratory symptoms. Allergies and Home Medications Allergies Coded Allergies: No Known Drug Allergies (Unverified Allergy, Mild, 03/19/09) No Known Allergies (Verified Allergy, Unknown, 07/12/06) Home Medications Azithromycin 250 Mg Tab, 0 PO Z-ZAHIDA Prescribed by: SONNY ARGUETA MD on 04/20/12 0841 Azithromycin 250 Mg Tablet, 250 MG PO UD TAKE 2 TABLETS ON DAY ONE THEN TAKE 1 TABLET DAILY FOR FOUR MORE DAYS Prescribed by: GENNY SHABAZZ on 10/19/19 1157 Cephalexin 500 Mg Capsule, 500 MG PO QID Prescribed by: GENNY SHABAZZ on 10/19/19 1157 Chlorphenir/Hydrocod Polistir 5 Ml Susp, 5 ML GT HS Prescribed by: SONNY ARGUETA MD on 04/20/12 0841 Diazepam 5 Mg Tablet, 0.5 EACH PO NEEDED, (Reported) Hydrocodone Bit/Acetaminophen 1 Each Tablet, 1 EACH PO BID, (Reported) Trazodone Hcl 100 Mg Tab, 100 MG PO HS, (Reported) Patient Home Medication List Home Medication List Reviewed: Yes Review of Systems Review of Systems Constitutional: no symptoms reported EENTM: no symptoms reported Respiratory: see HPI Cardiovascular: no symptoms reported Gastrointestinal: no symptoms reported Genitourinary: no symptoms reported : No Musculoskeletal: see HPI Skin: see HPI Psychiatric/Neurological: No Symptoms Reported Hematologic/Lymphatic: No Symptoms Reported Immunological/Allergic: no symptoms reported Past Iowsarc-Gngqll-Nsqjny Hx Past Med/Social Hx: Reviewed Nursing Past Med/Soc Hx Patient Social History Alcohol Use: Denies Use Recreational Drug Use: No Smoking Status: Never a Smoker Recent Foreign Travel: No Contact w/Someone Who Travel: No Recent Infectious Disease Expo: No Recent Hopitalizations: No Physical Abuse: No Sexual Abuse: No Mistreated: No Fear: No Seasonal Allergies Seasonal Allergies: No Past Medical History Surgeries: Yes Appendectomy, Section, Hysterectomy, Tonsillectomy Respiratory: No Cardiac: No Neurological: No : No Genitourinary: No Gastrointestinal: No Musculoskeletal: No Endocrine: No HEENT: No Cancer: No Psychosocial: No Integumentary: No Blood Disorders: No Adverse Reaction/Blood Tranf: No Physical Exam Vital Signs Vital Signs - First Documented 10/19/19 09:40 Temp 36.5 Pulse 81 Resp 16 B/P (MAP) 141/84 (103) Pulse Ox 98 Capillary Refill : Less Than 3 Seconds Height, Weight, BMI Height: 5'3.00" Weight: 215lbs. oz. 97.653307rl; 39.00 BMI Method:Stated General Appearance: WD/WN, Mild Distress, Obese HEENT: PERRL/EOMI, Normal ENT Inspection Neck: Normal Inspection Respiratory: Lungs Clear, Normal Breath Sounds, No Accessory Muscle Use, No Respiratory Distress, Other (Left lower lateral and anterior chest wall tender to palpation) Cardiovascular: Regular Rate, Rhythm, No Edema, No Murmur, Normal Peripheral Pulses Extremity: Other (Left foot swollen, erythematous, warm, and tender. Capillary refill brisk. Dorsal pedal pulse intact) Neurologic/Psychiatric: Alert, Oriented x3, No Motor/Sensory Deficits, Normal Mood/Affect, weigher and charger II-XII Norm as Tested Skin: Normal Color, Warm/Dry, Other Progress/Results/Core Measures Suspected Sepsis Recent Fever Within 48 Hours: No Infection Criteria Present: Suspected New Infection New/Unexplained Altered Menta: No Sepsis Screen: No Definite Risk SIRS Temperature: Pulse: 81 Respiratory Rate: 16 Laboratory Tests 10/19/19 10:19: White Blood Count 7.8 Blood Pressure 141 /84 Mean: 103 Laboratory Tests 10/19/19 10:19: Creatinine 0.77, Platelet Count 265 Results/Orders Lab Results Laboratory Tests Test 10/19/19 10:19 Range/Units White Blood Count 7.8 4.3-11.0 10^3/uL Red Blood Count 4.76 4.35-5.85 10^6/uL Hemoglobin 13.5 11.5-16.0 G/DL Hematocrit 41 35-52 % Mean Corpuscular Volume 86 80-99 FL Mean Corpuscular Hemoglobin 28 25-34 PG Mean Corpuscular Hemoglobin Concent 33 32-36 G/DL Red Cell Distribution Width 13.7 10.0-14.5 % Platelet Count 265 130-400 10^3/uL Mean Platelet Volume 9.9 7.4-10.4 FL Neutrophils (%) (Auto) 63 42-75 % Lymphocytes (%) (Auto) 25 12-44 % Monocytes (%) (Auto) 10 0-12 % Eosinophils (%) (Auto) 2 0-10 % Basophils (%) (Auto) 1 0-10 % Neutrophils # (Auto) 4.9 1.8-7.8 X 10^3 Lymphocytes # (Auto) 2.0 1.0-4.0 X 10^3 Monocytes # (Auto) 0.8 0.0-1.0 X 10^3 Eosinophils # (Auto) 0.1 0.0-0.3 10^3/uL Basophils # (Auto) 0.0 0.0-0.1 10^3/uL Sodium Level 140 135-145 MMOL/L Potassium Level 3.8 3.6-5.0 MMOL/L Chloride Level 108 H 98-107 MMOL/L Carbon Dioxide Level 24 21-32 MMOL/L Anion Gap 8 5-14 MMOL/L Blood Urea Nitrogen 9 7-18 MG/DL Creatinine 0.77 0.60-1.30 MG/DL Estimat Glomerular Filtration Rate > 60 BUN/Creatinine Ratio 12 Glucose Level 89 70-105 MG/DL Calcium Level 8.7 8.5-10.1 MG/DL C-Reactive Protein High Sensitivity 1.29 H 0.00-0.50 MG/DL My Orders Orders - GENNY FRANCO MD Chest Pa/Lat (2 View) (10/19/19 09:59) Ribs, Left 2-3 Views (10/19/19 09:59) Basic Metabolic Panel (10/19/19 09:59) Cbc With Automated Diff (10/19/19 09:59) Hs C Reactive Protein (10/19/19 09:59) Ed Iv/Invasive Line Start (10/19/19 09:59) Ketorolac Injection (Toradol Injection) (10/19/19 10:00) Ceftriaxone For Iv Use (Rocephin For I (10/19/19 10:00) Medications Given in ED Current Medications Medications Dose Ordered Sig/Wanda Route Start Time Stop Time Status Last Admin Dose Admin Ceftriaxone Sodium 1000 mg/ Sterile Water 10 ml @ 200 mls/hr ONCE ONCE IV 10/19/19 10:00 10/19/19 10:02 DC 10/19/19 10:17 200 MLS/HR Ketorolac Tromethamine 30 mg ONCE ONCE IVP 10/19/19 10:00 10/19/19 10:01 DC 10/19/19 10:17 30 MG Vital Signs/I&O 10/19/19 10/19/19 09:40 12:30 Temp 36.5 Pulse 81 95 Resp 16 16 B/P (MAP) 141/84 (103) 145/76 Pulse Ox 98 98 Capillary Refill : Less Than 3 Seconds Blood Pressure Mean: 103 Progress Note : Progress Note Baseline labs were obtained. IV Toradol and Rocephin were administered. Chest x-ray revealed a left lower lobe pneumonia in the costophrenic angle. Azithromycin and Keflex were prescribed for further outpatient treatment of the pneumonia and cellulitis. Diagnostic Imaging Diagonstic Imaging: Xray Plain Films/CT/US/NM/MRI: chest Comments Chest x-ray reviewed by me and report reviewed. See report below: NAME: DIPAK FRASER [facility] REC#: [id number] PT STATUS: DEP ER : 1975 PHYSICIAN: GENNY FRANCO MD ADMIT DATE: 10/19/19/ER Signed Date of Exam:10/19/19 CHEST PA/LAT (2 VIEW) INDICATION: Left rib pain. TIME OF EXAM: 11:01 AM Correlation is made with prior chest 01/22/2008. There is an area of density in the left lung base near the costophrenic angle. Otherwise the lungs are clear. No effusion is identified. There is no pneumothorax. Bony structures are unremarkable. IMPRESSION: Minimal infiltrate or atelectasis left base. Study is otherwise unremarkable. Dictated by: Dictated on workstation # [id number] Dict: 10/19/19 1110 Trans: 10/19/19 1555 [facility] [id number] Interpreted by: IVAN BRUCE MD Electronically signed by: IVAN BRUCE MD 10/19/19 1555 Diagonstic Imaging: Xray Plain Films/CT/US/NM/MRI: other Comments Left rib x-rays viewed by me and report reviewed. See report below: NAME: DIPAK FRASER MED REC#: [id number] PT STATUS: DEP ER : 1975 PHYSICIAN: GENNY FRANCO MD ADMIT DATE: 10/19/19/ER Signed Date of Exam:10/19/19 RIBS, LEFT 2-3 VIEWS INDICATION: Left rib pain. TIME OF EXAMINATION: 11:02 AM. TECHNIQUE: Multiple views of the left ribs were obtained. FINDINGS: No displaced rib fracture is detected. There is a small area of infiltrate or atelectasis in the left base. No pneumothorax is seen. IMPRESSION: No evidence of rib fracture. There is some minimal infiltrate or atelectasis in the left base. Dictated by: Dictated on workstation # [id number] Dict: 10/19/19 1113 Trans: 10/19/19 1555 [id number] Interpreted by: IVAN BRUCE MD Electronically signed by: IVAN BRUCE MD 10/19/19 1555 Departure Impression Primary Impression: Left lower lobe pneumonia Qualified Codes: J18.1 - Lobar pneumonia, unspecified organism Additional Impression: Cellulitis of left foot Disposition: 01 HOME, SELF-CARE Condition: Improved Departure-Patient Inst. Decision time for Depature: 11:45 Referrals: NO,LOCAL PHYSICIAN (PCP/Family) Primary Care Physician Patient Instructions: Cellulitis (Skin Infection), Adult (DC), Community- Acquired Pneumonia, Adult (DC) Add. Discharge Instructions: Complete both types of antibiotics as prescribed. Exercise deep breathing at least 10 times per hour while awake. Control pain with ibuprofen up to 600 mg every 6 hours as needed and Tylenol (acetaminophen) up to 1000 mg every 6 hours as needed. Elevate your left foot to the level of your heart is much as possible. Return to the emergency room if you have worsening symptoms including development of fevers over 100, worsening shortness of breath, etc. All discharge instructions reviewed with patient and/or family. Voiced und erstanding. Scripts Cephalexin (Keflex) 500 Mg Capsule 500 MG PO QID, #40 CAP Prov: GENNY FRANCO MD 10/19/19 Azithromycin (Azithromycin) 250 Mg Tablet 250 MG PO UD, #6 TAB TAKE 2 TABLETS ON DAY ONE THEN TAKE 1 TABLET DAILY FOR FOUR MORE DAYS Prov: GENNY FRANCO MD 10/19/19 GENNY FRANCO MD Oct 19, 2019 11:57
[2019-10-19 12:30] VITALS: BP 145/76
== END 2019-10-19 12:29 | disposition home or self-care (01) ==
LOC: EDUNIT# 08:57 → ER 09:00
DX: J18.9 Pneumonia, unspecified organism (principal); L03.116 Cellulitis of left lower limb; Z90.49 Acquired absence of other specified parts of digestive tract; Z90.710 Acquired absence of both cervix and uterus; Z90.89 Acquired absence of other organs
CPT/HCPCS: 36415; 71046; 71100; 80048; 85025; 86141; 96374; 96375